=== PATIENT | male | born 1970 | race Caucasian/White ===

== ENCOUNTER 2022-09-15 08:22 | Emergency (ER) | payer BC, SELFPAY ==
[2022-09-15 08:23] VITALS: BP 140/87; PULSE 95; RESP 18; TEMP 35.8; O2SAT 98
[2022-09-15 08:42] VITALS: BMI 26.1
[2022-09-15] MEDS: 0.9% Normal Saline 1,000 ML 1000 ML IV ×2 (09:02→09:47)
--- NOTE | 2022-09-15 09:07 | EDS_ITS ---
HPI History of Present Illness Chief Complaint: Diarrhea Informant: patient Onset/Context/Timing Onset: Month(s) Narrative Narrative: Patient presents secondary to diarrhea and dehydration. He states has had diarrhea for the past couple of months. No significant abdominal pain. He has had stool studies that showed no evidence of bacterial infection. His PCP had performed an x-ray that revealed some dilated small bowel loops. He had a CT scan last Wednesday at [facility] and is supposed to see Dr. Chowdary this coming Wednesday. Patient states that today he has had muscle cramping and spasms. He was sent in for hydration. I was able to obtain the CT report that he had performed last Wednesday. There are prominent loops of small bowel noted. There is a jejunal intussusception seen in the left abdomen. This is usually transient phenomenon. Splenic flexure, descending, and sigmoid colon diverticulosis without CT evidence of diverticulitis. [facility] Medical History Hypertension Allergy/AdvReac Type Severity Reaction Status Date / Time No Known Allergies Allergy Verified 09/15/22 08:22 Social History Smoking Status: Never smoker ROS ROS ED Constitutional Constitutional ED: Denies chills or fever(s) Eyes Eyes: Denies change in vision or discharge from eye(s) ENT ENT ED: Denies discharge from eye(s), rhinorrhea or sore throat Cardiovascular Cardiovascular: Denies chest pain or palpitations Respiratory/Chest Respiratory/Chest: Denies cough or dyspnea Gastrointestinal Gastrointestinal: Reports diarrhea; Denies abdominal pain, nausea or vomiting Genitourinary Genitourinary ED: Denies difficulty urinating or dysuria Musculoskeletal Musculoskeletal: Reports other Details: Muscle spasms ; Denies back pain or extremity pain Integumentary Denies Abrasions or rash Neurologic Neurologic: Denies headache(s) or weakness Allergic/Immunologic Allergic/Immunologic ED: Denies lip swelling or urticaria EXAM Physical Exam Const Vital Signs: 09/15/22 08:23 Temperature 96.4 F L Temperature Source Temporal Pulse Rate 95 Respiratory Rate 18 Blood Pressure 140/87 H Blood Pressure Mean 104 Pulse Ox 98 Oxygen Delivery Method Room Air Positive well nourished and well developed General Appearance ED: well developed HEENT Reports normocephalic and head/scalp atraumatic Eyes PERRL and EOMs intact bilaterally Neck supple Chest Wall inspection of chest normal and palpation of chest normal Resp normal respiratory effort and clear to auscultation bilaterally Cardio regular rate and regular rhythm GI non-tender Auscultation: hypoactive bowel sounds Palpation: soft Extremity normal to inspection Neuro oriented x3 and no sensory deficits noted Sensorium / Orientation: alert Motor Exam: strength 5/5 throughout Psych mental status grossly normal Skin no rashes or lesions noted MDM MDM MDM Narrative Medical decision making narrative: Patient given 2 L of IV fluid given concern for dehydration. Lab work obtained to evaluate for leukocytosis, anemia or hemoconcentration, electrolyte derangement. Urinalysis obtained. Lab Data Attestation: I reviewed the patient's lab results. Labs: Laboratory Results - last 24 hr 09/15/22 09/15/22 09/15/22 09:10 09:10 10:45 WBC 9.8 RBC 5.89 Hgb 18.1 H* Hct 53.0 MCV 90.0 MCH 30.7 MCHC 34.2 RDW Std Deviation 43.1 RDW Coeff of Ligia 13.2 Plt Count 321 MPV 9.6 Immature Gran % (Auto) 0.500 Neut % (Auto) 76.7 H Lymph % (Auto) 10.6 L [place] % (Auto) 7.1 Eos % (Auto) 4.7 Baso % (Auto) 0.4 Absolute Neuts (auto) 7.6 Absolute Lymphs (auto) 1.04 Nucleated RBC % 0 Diff Path Review May foll Sodium 136 Potassium 4.7 Chloride 112 H Carbon Dioxide 18.0 L Anion Gap 6 BUN 20 H Creatinine 1.20 Estim Creat Clear Calc 81.38 Est GFR (MDRD) Af Amer 82 Est GFR (MDRD) Non-Af 68 BUN/Creatinine Ratio 16.7 Glucose 117 H Calcium 9.5 Total Bilirubin 0.60 Direct Bilirubin 0.13 AST 35 ALT 68 H Alkaline Phosphatase 190 H Total Protein 7.6 Albumin 3.9 Globulin 3.7 Urine Color Yellow Urine Clarity Sl. Cloudy Urine pH 6.0 Ur Specific [place] 1.020 Urine Protein 30 H Urine Glucose (UA) Normal Urine Ketones 5 H Urine Occult Blood 10 H Urine Nitrite Negative Urine Bilirubin 1 H Urine Urobilinogen Normal Ur Leukocyte Esterase Negative Urine RBC 0-5 SEEN Urine WBC 0 SEEN Ur Squamous Epith Cells 0-5 SEEN Urine Bacteria 1+ Hyaline Casts 0-5 SEEN Urine Mucus 2+ Treatment and Re-Evaluation Narrative: CBC was normal white count. Hemoglobin is 18.1. Chemistry studies reveal normal potassium. BUN is 20 and creatinine is 1.20. Bicarb is slightly low at 18. Chemistry studies significant only for an alk phos of 190 and ALT of 68. Other values normal. Urinalysis shows 5 ketones with no sign of acute infection. I did speak with Dr. Kay, on-call for surgery given the patient's recent CT report. He states as long as the patient is not having vomiting or abdominal pain there is no indication to repeat imaging at this time. Patient has remained pain-free in the emergency room. He states that his legs are sore but no longer twitching or having spasms. He will continue hydration at home and follow-up with Dr. Chowdary on Wednesday as scheduled. Discharge Plan Triage Chief Complaint: Diarrhea ED Provider: Bonnie Schuster Dx/Rx/DC Orders Clinical Impression: Diarrhea, Dehydration Instructions: ED Dehydration (Adult), ED Diarrhea, Unknown Cause Primary Care Provider: Lars Freitas Referrals: Alexander Chowdary MD [Med Staff - Active Staff] - Keep [facility] appointment Lars Freitas MD [Primary Care Provider] - Disposition Disposition: Home, Self Care
[2022-09-15 09:20] LABS: Absolute Lymphocyte Count 1.04 X10^3/uL (0.83-4.51); Absolute Neutrophil Count 7.6 X10^3/uL (2.0-7.7); Basophil# 0.04 X10^3/uL; Basophil% 0.4 % (0-1); Eosinophil# 0.46 X10^3/uL; Eosinophils% 4.7 % (0-5); Lymphocyte # 1.04 X10^3/ul (0.83-4.51); Lymphocyte % 10.6 % (19-41); Mean Corp Hgb Conc 34.2 g/dL (32-36); Mean Corpuscular Hgb 30.7 pg (27.0-32.0); Mean Platelet Vol. 9.6 fl (6.2-12.0); Monocyte% 7.1 % (0-10); NRBC Flagged by Analyzer 0 % (0-5); Neutrophil # 7.55 X10^3/uL (2.7-7.7); Neutrophil % 76.7 % (47-70); Platelet Count 321 K/mm3 (150-450); RBC Distribution Width CV 13.2 % (11.6-14.6); RBC Distribution Width SD 43.1 fl (35.1-43.9); Red Blood Count 5.89 M/mm3 (4.6-6.2); White Blood Count 9.8 K/mm3 (4.4-11.0)
[2022-09-15 09:24] LABS: Hemoglobin 18.1 g/dL (13.0-16.5)
[2022-09-15 09:35] LABS: AST(SGOT) 35 U/L (15-37); Alanine Aminotransfer ALT/SGPT 68 U/L (16-61); Albumin, Serum 3.9 g/dL (3.2-5.0); Alkaline Phosphatase 190 U/L (45-117); Anion Gap 6 (5-15); BUN 20 mg/dL (7-18); BUN/Creat Ratio 16.7 RATIO (10-20); Bilirubin, Direct 0.13 mg/dL (0.00-0.30); Calcium,Total 9.5 mg/dL (8.5-10.1); Chloride 112 mmol/L (98-107); EST Glomerular Filtration Rate 68 mL/min (>60); Est Glom Filt Rate - Afr Amer 82 mL/min (>60); Estimated Creatinine Clearance 81.38 ml/min; Globulin 3.7 g/dL (2.2-4.2); Glucose 117 mg/dL (74-106); Potassium 4.7 mmol/L (3.5-5.1); Protein, Total 7.6 g/dL (6.4-8.2); Sodium Level 136 mmol/L (136-145)
[2022-09-15 10:49] LABS: White Blood Cells 0 SEEN /hpf (0-5)
[2022-09-15 11:04] LABS: Color, Urine Yellow (Yellow); Glucose, Dipstick Normal (Normal); Ketone-Dipstick 5 mg/dl (Negative); Leukocyte Esterase-Dipstick Negative /ul (Negative); Nitrite-Dipstick Negative (Negative); Occult Blood-Urine 10 /ul (Negative); Protein-Dipstick 30 mg/dl (Negative); Urine Clarity Sl. Cloudy (Clear); Urine Urobilinogen Normal (Normal)
[2022-09-15 11:05] LABS: Urine Bilirubin Dipstick 1 mg/dL (Negative)
[2022-09-15 11:12] LABS: Bacteria 1+ /hpf (None Seen); Hyaline Cast 0-5 SEEN /lpf (0-5); Mucous, Urine 2+ /hpf (<or=2+); Red Blood Cells-Urine 0-5 SEEN /hpf (0-5); Squamous Epithelial Cells - UA 0-5 SEEN /hpf (0-5)
[2022-09-15 12:28] VITALS: BP 132/100; PULSE 64; RESP 16; O2SAT 100
[2022-09-16 13:32] LABS: Pathologist Review Reviewed
== END 2022-09-15 12:31 | disposition home or self-care (01) ==
PROVIDERS: Emergency Provider Emergency Medicine; PCP Family Medicine; Visit Provider Emergency Medicine
DX: R19.7 Diarrhea, unspecified (principal); K56.1 Intussusception; E86.0 Dehydration; K57.30 Diverticulosis of large intestine without perforation or abscess without bleeding; I10 Essential (primary) hypertension
CPT/HCPCS: 80048; 80076; 81001; 85025; 96360; 96361; 99282; J7030; A4216

== ENCOUNTER 2022-11-15 12:43 | Emergency (ER) | payer BC, SELFPAY ==
[2022-11-15 12:44] VITALS: BP 127/90; PULSE 91; RESP 18; TEMP 35.7; O2SAT 100; BMI 26.5
[2022-11-15 12:55] VITALS: BP 139/91; PULSE 83; RESP 18; TEMP 36.4; O2SAT 95
--- NOTE | 2022-11-15 13:03 | EDS_ITS ---
HPI HPI - GI History of Present Illness Chief Complaint: Diarrhea Informant: patient and spouse/S.O. Diarrhea/Melena/Hematochezia GI Symptom: Positive for Diarrhea; Negative for Melena or Hematochezia Onset: Month(s) Stool Quality: Positive for Loose and Watery Severity: Moderate Associated Symptoms Associated Symptoms: Negative for Dysuria, Frequency, Hematuria or Urgency Narrative Narrative: 52-year-old male has had a history of diarrhea has been going on since about May. Has had is now 5+ months. He had extensive work-up by his primary care physician and Dr. Alexander Chowdary of general surgery. He is going to see GI but cannot get into see them until January. He has diarrhea about 6 out of 7 days a week has had at least a 16 pound weight loss in the last 2 months. Possibly a 30 pound weight loss altogether. He has had upper and lower endoscopy. Scopes and CAT scans without any specific diagnosis. He is using Imodium with limited results. Since 330 this morning he has had about 12 watery bowel movements. No melena. No vomiting. No fever. Denies any prior abdominal surgeries other than an appendectomy 20 years ago. 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 Review of Systems ROS Unobtainable: Denies due to encephalopathy Constitutional Constitutional ED: Denies chills ENT ENT ED: Denies ear pain Cardiovascular Cardiovascular: Denies chest pain Respiratory/Chest Respiratory/Chest: Denies cough or dyspnea Gastrointestinal Gastrointestinal: Reports diarrhea and nausea; Denies abdominal pain or vomiting Genitourinary Genitourinary ED: Denies dysuria or hematuria Musculoskeletal Musculoskeletal: Denies arthralgias Integumentary Denies abscess Neurologic Neurologic: Denies headache(s) Psychiatric Psychiatric: Denies anxiety Endocrine Endocrinology: Denies polydipsia or polyphagia Hematologic/Lymphatic Hematologic/Lymphatic: Denies easy bleeding Allergic/Immunologic Allergic/Immunologic ED: Denies mouth swelling EXAM Physical Exam Narrative Exam Narrative: 52-year-old male vital signs stable afebrile. H EENT exam unremarkable. Moist with membranes. Lungs clear. Heart regular rhythm rate about 85. No murmur. Abdomen soft nontender normal bowel sounds no peritoneal signs. Flat nondistended. Moving all 4 extremities. Awake and alert. Normal benign exam. Const Vital Signs: 11/15/22 12:44 11/15/22 12:55 11/15/22 13:53 Temperature 96.2 F L 97.6 F L 97.3 F L Temperature Source Temporal Oral Temporal Pulse Rate 91 83 82 Respiratory Rate 18 18 17 Blood Pressure 127/90 H 139/91 H 125/87 H Blood Pressure Mean 102 107 99 Pulse Ox 100 95 98 Oxygen Delivery Method Room Air Room Air Room Air Positive well nourished and well developed; Negative for obese, cachectic, contractures or unkempt General Appearance ED: well developed and NAD; Negative for unkempt, cachectic, contractures or pallor Nutritional Appearance: Negative for cachectic or obese HEENT Reports moist mucous membranes; Denies dry mucous membranes normocephalic and atraumatic; Negative for trauma or tenderness Mouth ED: No dry mucous membranes Mouth: No dry mucous membranes Eyes PERRL and EOMs intact bilaterally General Eye ED: Negative for pale conjunctiva or scleral icterus Neck no lymphadenopathy, supple and no JVD General: Negative for tenderness Carotids: Negative for other Lymph Lymphatic: Negative for other Resp normal respiratory effort and clear to auscultation bilaterally Effort and Inspection: Negative for respiratory distress Auscultation: Negative for rales, rhonchi or wheezes Cardio regular rate, regular rhythm, S1 normal heart sound, S2 normal heart sound and no murmurs Rate: Negative for bradycardia or tachycardic Rhythm: Negative for abnormal rhythm GI non-tender, non-distended and no masses Inspection: Negative for abdominal distention Auscultation: normoactive bowel sounds Palpation: soft; Negative for tender or guarding Back/Spine Negative for no CVA tenderness General Back: Negative for CVA tenderness Cervical Spine: Negative for cervical spine tenderness Thoracic Spine / Upper Back: Negative for thoracic spinal tenderness Lumbar Spine / Lower Back: Negative for lumbar spinal tenderness Coccyx: Negative for other Extremity full ROM General Extremety ED: Negative for edema or tenderness General Extremity: Negative for edema Neuro CN's II-XII intact bilaterally, moves all extremities and no sensory deficits noted Sensorium / Orientation: alert, oriented to person, oriented to place and oriented to time; Negative for orientation impaired or confused Motor Exam: strength 5/5 throughout Psych mental status grossly normal and thought process normal Appearance: Negative for unkempt Attitude: No agitated Mood & Affect: Negative for depressed, anxious or tearful Skin no wounds General Skin Exam: Negative for jaundice or pallor Lesions: no lesions Rashes: no rashes Trauma: Negative for abrasion Nails: Negative for discolored MDM MDM MDM Narrative Medical decision making narrative: 52-year-old male concerned with dehydration due to multiple episodes of diarrhea this morning. We will treat with a liter normal saline. He had extensive work- up of his diarrhea the last 5 months. Without a specific diagnosis. I do not think any additional testing today will be of any significant benefit he and his understand that. Repeat exam patient doing well at 2 PM. wanted him to get a second bag of IV fluids which will be done and he will be discharged home. History & Record Review Discussion w/independent historian: Family Discharge Plan Triage Chief Complaint: Diarrhea ED Provider: Dao Light Dx/Rx/DC Orders Clinical Impression: Diarrhea Instructions: ED Diarrhea, Unknown Cause Prescriptions: No Action cyclobenzaprine 10 mg tablet 10 mg PO TID lisinopril 5 mg tablet 5 mg PO DAILY Primary Care Provider: Lars Freitas Referrals: Lars Freitas MD [[facility]] - As Needed Activity Restrictions/Additional Instructions: Continue Imodium as needed. Plenty of fluids and rest. Call and follow-up with GI soon as possible. Disposition Disposition: Home, Self Care
[2022-11-15] MEDS: 0.9% Normal Saline 1,000 ML 1000 ML IV (13:10)
[2022-11-15 13:53] VITALS: BP 125/87; PULSE 82; RESP 17; TEMP 36.3; O2SAT 98
[2022-11-15] MEDS: 0.9% Normal Saline 1,000 ML 999 ML IV (14:03)
[2022-11-15 14:38] VITALS: BP 166/102; PULSE 63; RESP 18; O2SAT 99
== END 2022-11-15 14:45 | disposition home or self-care (01) ==
PROVIDERS: Emergency Provider Emergency Medicine; PCP Family Medicine; Visit Provider Emergency Medicine
DX: R19.7 Diarrhea, unspecified (principal); I10 Essential (primary) hypertension; Z79.899 Other long term (current) drug therapy; Z90.49 Acquired absence of other specified parts of digestive tract; E86.0 Dehydration
CPT/HCPCS: 96360; 99283; J7030; A4216